=== PATIENT | male | born 1995 | race Hispanic/Latino ===

== ENCOUNTER 2020-07-14 18:07 | Emergency (ER) | payer OTHER, SELFPAY ==
[2020-07-14] MEDS ORDERED: BUPIVACAINE 0.5% PF 10 ML VIAL ONE (19:54)
[2020-07-14] MEDS ORDERED: LIDOCAINE 1% W/EPI 1:100,000 MDV 20 ML VIAL ONE (19:54)
[2020-07-14] MEDS ORDERED: TETANUS & DIPHTHERIA TOX,ADULT 0.5 ML VIAL ONE (19:55)
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
[2020-07-14 22:24] VITALS: TEMP 98
[2020-07-14 22:25] VITALS: O2SAT 100
[2020-07-14 22:28] VITALS: BP 114/61
== END 2020-07-14 22:18 | disposition home or self-care (01) ==
LOC: ER 18:07
PROC: 0JQP0ZZ Repair Left Lower Leg Subcutaneous Tissue and Fascia, Open Approach (ICD-10-PCS; principal; 2020-07-14)
DX: S81.012A Laceration without foreign body, left knee, initial encounter (principal); V28.0XXA Motorcycle driver injured in noncollision transport accident in nontraffic accident, initial encounter; Z23 Encounter for immunization
CPT/HCPCS: 73700; 90471; 90714; 99283

== ENCOUNTER 2020-07-29 18:59 | Emergency (ER) | payer SELFPAY ==
--- NOTE | 2020-07-29 20:40 | EDPHYS ---
Physician Documentation [facility] Name: Magno Bhagat Age: 24 yrs Sex: Male : 1995 Arrival Date: 07/29/2020 Time: 19:31 Bed 12 Private MD: ED Physician Sandro Yanes HPI: 07/29 20:29 This 24 yrs old Male presents to ER via Ambulatory with complaints of Suture mh7 Removal. 20:29 The patient has dez on the left knee. Previous treatment: The patient was initially mh7 treated 15 day(s) ago, the care was rendered at [facility], Treatment type: The patient's original treatment included dez. Sutures/dez progress: The patient has no c/o's. The wound is well-healing with no redness, swelling, discharge, or dehiscence reported. Historical: - Allergies: 20:07 No Known Allergies; iw - Home Meds: 20:07 None [Active]; iw - PMHx: 20:07 None; iw - PSHx: 20:07 None; iw - Immunization history:: Adult Immunizations up to date. - Social history:: Smoking status: . ROS: 20:40 Constitutional: Negative for fever, chills, and weight loss, Eyes: Negative for injury, mh7 pain, redness, and discharge, ENT: Negative for injury, pain, and discharge, Neck: Negative for injury, pain, and swelling, Cardiovascular: Negative for chest pain, palpitations, and edema, Respiratory: Negative for shortness of breath, cough, wheezing, and pleuritic chest pain, Abdomen/GI: Negative for abdominal pain, nausea, vomiting, diarrhea, and constipation, Back: Negative for injury and pain, : Negative for injury, bleeding, discharge, and swelling, Neuro: Negative for headache, weakness, numbness, tingling, and seizure, Psych: Negative for depression, anxiety, suicide ideation, homicidal ideation, and hallucinations, Allergy/Immunology: Negative for hives, rash, and allergies, Endocrine: Negative for neck swelling, polydipsia, polyuria, polyphagia, and marked weight changes, Hematologic/Lymphatic: Negative for swollen nodes, abnormal bleeding, and unusual bruising. Exam: 20:40 Constitutional: This is a well developed, well nourished patient who is awake, alert, mh7 and in no acute distress. 20:40 Neuro: Awake and alert, GCS 15, oriented to person, place, time, and situation. Cranial nerves II-XII grossly intact. Motor strength 5/5 in all extremities. Sensory grossly intact. Cerebellar exam normal. Normal gait. Psych: Awake, alert, with orientation to person, place and time. Behavior, mood, and affect are within normal limits. 20:40 Musculoskeletal/extremity: Extremities: noted in the left anterior knee: healing wound with [address], ROM: intact in all extremities, Circulation is intact in all extremities. Sensation intact. Compartment Syndrome exam of affected extremity: is normal. no pain, no numbness, no tingling, no sensation deficit, no palor, no weak pulses, Joints: the left knee displays healing wound with [address] No erythema, swelling, discharge, tenderness, or increased warmth., Weight bearing: able to fully bear weight, without difficulty, Tendon exam: specific tendon testing normal through active and passive range of motion Calves: are non-tender, have equal circumference. 20:40 Skin: Wound recheck: Staple laceration closure: the wound is healing well, no evidence of dehiscence, no drainage, no erythema, no swelling. Vital Signs: 20:05 BP 124 / 75; Pulse 65; Resp 16; Temp 97.5; Pulse Ox 97% on R/A; Weight 79.38 kg; Height iw 5 ft. 6 in. (167.64 cm); 20:05 Body Mass Index 28.25 (79.38 kg, 167.64 cm) iw Procedures: 20:40 Suture/Staple removal: Removed 10 dez, from left anterior knee, site appears well 7 healed, dressed with gauze bandage, Patient tolerated well. MDM: 20:37 Data reviewed: vital signs, nurses notes. Counseling: I had a detailed discussion with [facility] the patient and/or guardian regarding: the historical points, exam findings, and any diagnostic results supporting the discharge/admit diagnosis, the need for outpatient follow up, to return to the emergency department if symptoms worsen or persist or if there are any questions or concerns that arise at home. Response to treatment: the patient's symptoms have resolved after treatment, the patient's blood pressure is in an acceptable range, mental status has returned to baseline, the patient no longer shows bradycardia, the patient is not short of breath, the patient is not tachycardic, the patient's pain is gone, the patient's temperature has normalized. 20:39 Patient medically screened. [facility] 07/29 20:20 Order name: Staple Remover Setup; Complete Time: 20:49 [facility] Administered Medications: No medications were administered Disposition: 07/29/20 20:39 Discharged to Home. Impression: Staple Removal. - Condition is Stable. - Discharge Instructions: Suture Removal, Care After, Wound Closure Removal. - Medication Reconciliation Form, Thank You Letter, Antibiotic Education, Prescription Opioid Use form. - Follow up: Private Physician; When: As needed; Reason: Worsening of condition, Recheck today's complaints, Continuance of care, Re-evaluation by your physician. - Problem is new. - Symptoms have improved. Signatures: Shellie Marr RN RN iw Sandro Yanes MD MD [facility] Corrections: (The following items were deleted from the chart) 21:01 20:39 07/29/2020 20:39 Discharged to Home. Impression: Staple Removal. Condition is iw Stable. Forms are Medication Reconciliation Form, Thank You Letter, Antibiotic Education, Prescription Opioid Use. Follow up: Private Physician; When: As needed; Reason: Worsening of condition, Recheck today's complaints, Continuance of care, Re-evaluation by your physician. Problem is new. Symptoms have improved. [facility]
--- NOTE | 2020-07-29 20:40 | ER ---
Nurse's Notes [facility] Name: Magno Bhagat Age: 24 yrs Sex: Male : 1995 Arrival Date: 07/29/2020 Time: 19:31 Bed 12 Private MD: Diagnosis: Staple Removal Presentation: 07/29 20:05 Chief complaint: Patient states: needs sutures removed from left knee, sutures placed iw two weeks ago. Coronavirus screen: At this time, the client does not indicate any symptoms associated with coronavirus-19. Ebola Screen: Patient negative for fever greater than or equal to 101.5 degrees Fahrenheit, and additional compatible Ebola Virus Disease symptoms Patient denies exposure to infectious person. Patient denies travel to an Ebola-affected area in the 21 days before illness onset. No symptoms or risks identified at this time. Initial Sepsis Screen: Does the patient meet any 2 criteria? No. Patient's initial sepsis screen is negative. Does the patient have a suspected source of infection? No. Patient's initial sepsis screen is negative. Risk Assessment: Do you want to hurt yourself or someone else? Patient reports no desire to harm self or others. Onset of symptoms was July 15, 2020. 20:05 Method Of Arrival: Ambulatory iw 20:05 Acuity: AQUILES 4 iw Historical: - Allergies: 20:07 No Known Allergies; iw - Home Meds: 20:07 None [Active]; iw - PMHx: 20:07 None; iw - PSHx: 20:07 None; iw - Immunization history:: Adult Immunizations up to date. - Social history:: Smoking status: . Screenin:18 Abuse screen: Denies threats or abuse. Denies injuries from another. Nutritional iw screening: No deficits noted. Tuberculosis screening: No symptoms or risk factors identified. Fall Risk None identified. Assessment: 20:17 General: Appears in no apparent distress. Behavior is calm, cooperative. Pain: Denies iw pain. Neuro: Level of Consciousness is awake, alert, obeys commands, Oriented to person, place, time, situation, Moves all extremities. Full function. Cardiovascular: Patient's skin is warm and dry. Respiratory: Respiratory effort is even, unlabored. Derm: Skin is intact. Vital Signs: 20:05 BP 124 / 75; Pulse 65; Resp 16; Temp 97.5; Pulse Ox 97% on R/A; Weight 79.38 kg; Height iw 5 ft. 6 in. (167.64 cm); 20:05 Body Mass Index 28.25 (79.38 kg, 167.64 cm) iw ED Course: 19:31 Patient arrived in ED. es 20:06 Triage completed. 20:12 Sandro Yanes MD is Attending Physician. [facility] 20:17 Shellie Marr, RN is Primary Nurse. iw 20:17 Arm band placed on. iw Administered Medications: No medications were administered Outcome: 20:39 Discharge ordered by . [facility] 21:01 Patient left the ED. iw Signatures: Alea Mcdaniels Shellie Marr, ANSLEY PANCHAL iw Sandro Yanes MD MD [facility]
[2020-07-29 21:29] VITALS: BP 124/75; TEMP 97.5; O2SAT 97
== END 2020-07-29 21:01 | disposition home or self-care (01) ==
LOC: ER 18:59
DX: Z48.02 Encounter for removal of sutures (principal)
CPT/HCPCS: 99281